=== PATIENT | male | born 1960 | race Caucasian/White ===

== ENCOUNTER 2017-08-10 09:22 | Emergency (ER) | payer BC, OTHER ==
[2017-08-10 09:41] VITALS: BP 135/83; PULSE 77; TEMP 98.6; BMI 23.3
--- NOTE | 2017-08-10 09:59 | PDOC ---
History of Present Illness - General Chief Complaint: Lightheaded Stated Complaint: UPPER BACK AND NECK PAIN Time Seen by Provider: 08/10/17 09:57 History Source: Patient Exam Limitations: No Limitations - History of Present Illness Initial Comments: 08/10/17 10:07 came to emergency department for evaluation of left neck and shoulder pain. States has had intermittent episodes of same type of pain over the past few weeks that spontaneously resolved. Dates pain is primarily to his left neck, upper back, with sometimes radiation around his scalp, sometimes radiation down left shoulder. Denies associated palpitations chest pain or shortness of breath. Denies fever, earache or sore throat pain polyp, no one at home is ill with URI symptoms nor is he. Denies any history of cardiac disease and does not take any medication for any reason. 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 Denies heavy lifting or strenuous activity however has been working on house projects this past month. 08/10/17 13:02 Occurred: reports: this morning Severity: reports: mild, moderate Pain Location: reports: upper extremity (left shoulder) Method of Injury: Yes: unknown Past History - Travel Traveled outside of the country in the last 30 days: No Close contact w/someone who was outside of country & ill: No - Past Medical History Allergies/Adverse Reactions: Allergies Allergy/AdvReac Type Severity Reaction Status Date / Time No Known Allergies Allergy Verified 08/10/17 09:32 Home Medications: Ambulatory Orders Cyclobenzaprine HCl 10 mg PO Q8H PRN #14 tablet 08/10/17 Ibuprofen 600 mg PO Q6H PRN #30 tablet 08/10/17 COPD: No - Suicide/Smoking/Psychosocial Hx Smoking History: Never smoked Have you smoked in the past 12 months: No Information on smoking cessation initiated: No Hx Alcohol Use: No Drug/Substance Use Hx: No Substance Use Type: None Trauma Specific PMHX - Complaint Specific PMHX Back Injury: No Neck Injury: No Review of Systems - Review of Systems Able to Perform ROS?: Yes Is the patient limited German proficient: Yes Constitutional: Yes: See HPI. No: Symptoms Reported, Loss of Appetite, Malaise HEENTM: Yes: See HPI. No: Symptoms Reported, Nose Congestion, Throat Pain Respiratory: Yes: See HPI. No: Symptoms reported, Cough, Wheezing Cardiac (ROS): Yes: See HPI. No: Symptoms Reported, Lightheadedness, Palpitations, Syncope, Chest Tightness ABD/GI: Yes: See HPI. No: Symptoms Reported, Constipated, Diarrhea, Nausea, Vomiting : No: Symptoms Reported Integumentary: No: Symptoms Reported Neurological: Yes: Symptoms reported, Headache (wraparound type headache primarily on the left side and seems to be associated with the pain to his shoulder and neck muscles). No: Numbness, Paresthesia All Other Systems: Reviewed and Negative *Physical Exam - Vital Signs Last Vital Signs Temp Pulse Resp BP Pulse Ox 98.6 F 77 18 135/83 100 08/10/17 09:35 08/10/17 09:35 08/10/17 09:35 08/10/17 09:35 08/10/17 09:35 - Physical Exam General Appearance: Yes: Nourished, Appropriately Dressed. No: Apparent Distress HEENT: positive: [place], Normal ENT Inspection, TMs Normal, Pharynx Normal Neck: positive: Tender (mild tenderness reproduced with palpation of the sternocleidomastoid muscles primarily the anterior belly of the left side. However no reproduced tenderness with point pressure at occiput, or insertion sites mid trapezius. However has some tenderness and tension at the upper lateral aspect of left trapezius. Pain is reproduced with abduction against resistance at same muscle groups of his upper back.), Supple. negative: Lymphadenopathy (R), Lymphadenopathy (L) Respiratory/Chest: positive: Lungs Clear, Normal Breath Sounds Cardiovascular: positive: Regular Rhythm, Regular Rate Gastrointestinal/Abdominal: positive: Normal Bowel Sounds, Soft. negative: Tender Musculoskeletal: positive: Normal Inspection. negative: CVA Tenderness Extremity: positive: Normal Capillary Refill Integumentary: positive: Normal Color, Dry, Warm, Pale Neurologic: positive: brick offbearer II-XII NML intact, Fully Oriented, Alert, Normal Mood/ Affect, Normal Response, Motor Strength 5/5 Heart Score/ECG Review - ECG Intrepretation Rhythm: Regular Rhythm - ECG Impressions Normal ECG: Yes Ischemic Changes: No ED Treatment Course - LABORATORY CBC & Chemistry Diagram: 08/10/17 10:10 08/10/17 10:13 Progress Note - Progress Note Progress Note: Left shoulder and neck pain. EKG is normal , and symptomatology clinically suspicious for musculoskeletal disorders however will obtain basic labs including a cardiac profile to rule out any potential pathology area and provide Toradol for anti-inflammatory and pain relief Medical Decision Making - Medical Decision Making 08/10/17 12:05 states feels much improved, Toradol relieved much of his neck tenderness. Laboratory work within normal limits and cardiac enzymes negative for any cardiac involvement. With normal EKG and normal labs, will discharge with treatment for cervical muscle strain with NSAIDs and cyclobenzaprine. We'll have follow-up with PMD 08/10/17 13:03 *DC/Admit/Observation/Transfer Diagnosis at time of Disposition: Sprain of cervical neck Qualifiers: Encounter type: initial encounter Qualified Code(s): S13.9XXA - Sprain of joints and ligaments of unspecified parts of neck, initial encounter - Discharge Dispostion Disposition: HOME Condition at time of disposition: Stable Admit: No - Prescriptions Prescriptions: Cyclobenzaprine HCl 10 mg PO Q8H PRN #14 tablet PRN Reason: spasm Ibuprofen 600 mg PO Q6H PRN #30 tablet PRN Reason: Pain - Referrals Referrals: Keith Calderon MD [Primary Care Provider] - - Patient Instructions Printed Discharge Instructions: DI for Cervical Muscle Strain Additional Instructions: Rest, no heavy lifting or exercise until pain is resolved Hot soaks to neck and low back as often as possible/hot showers or Jacuzzis No massage or therapy until spasm is gone Continue ibuprofen 2-200 mg tablets every 6 hours for the next 3 days then as needed for pain and swelling Cyclobenzaprine 1-10mg every 8 hours as needed for spasm If not significant improvement within 24 hours with medication and rest regime, followup with private physician for change in medications and /or therapy. - Post Discharge Activity Forms/Work/School Notes: Back to Work
[2017-08-10] MEDS ORDERED: KETOROLAC TROMETHAMINE 30 MG/1 ML VIAL IVPUSH ONE (10:07)
[2017-08-10] MEDS ORDERED: KETOROLAC TROMETHAMINE 30 MG/1 ML VIAL ONE (10:18)
[2017-08-10 10:49] LABS: BASO % 0.1 % (0-2.0); EOS % 2.1 % (0-4.5); HEMATOCRIT 46.2 % (35.4-49); LYMPH % 37.5 % (8-40); MCH 29.5 pg (25.7-33.7); MCHC 32.5 g/dl (32.0-35.9); MEAN CELL VOLUME 90.6 fl (80-96); MEAN PLT VOLUME 8.5 fl (7.5-11.1); MONO % 10.5 % (3.8-10.2); NEUT % 49.8 % (42.8-82.8); PLATELET COUNT 189 K/MM3 (134-434); RBC 5.09 M/mm3 (4.00-5.60); RDW 13.4 % (11.9-15.9); WHITE BLOOD COUNT 5.5 K/mm3 (4.0-10.0)
[2017-08-10 10:58] LABS: ANION GAP 8 (8-16); BILIRUBIN,TOTAL 0.4 mg/dL (0.2-1.0); BLOOD UREA NITROGEN 18 mg/dL (7-18); CALCIUM 8.9 mg/dL (8.5-10.1); CHLORIDE 102 mmol/L (98-107); CO2 28 mmol/L (21-32); CREATININE 0.9 mg/dL (0.7-1.3); GLUCOSE,RANDOM 75 mg/dL (74-106); SGPT/ALT 54 U/L (12-78); SODIUM 138 mmol/L (136-145); TOT PROT 7.5 g/dl (6.4-8.2)
[2017-08-10 11:01] LABS: ALK PHOS 48 U/L (45-117)
[2017-08-10 11:04] LABS: POTASSIUM 4.3 mmol/L (3.5-5.1); SGOT/AST 26 U/L (15-37)
--- NOTE | 2017-08-10 15:20 | EKG ---
Test Reason : Blood Pressure : / mmHG Vent. Rate : 072 BPM Atrial Rate : 072 BPM P-R Int : 156 ms QRS Dur : 072 ms QT Int : 366 ms P-R-T Axes : 048 030 032 degrees QTc Int : 400 ms NORMAL SINUS RHYTHM NORMAL ECG NO PREVIOUS ECGS AVAILABLE Confirmed by Gerardo Kinney ([id number]) on 08/10/2017 3:20:22 PM Referred By: Confirmed By:Gerardo Kinney
== END 2017-08-10 12:26 | disposition home or self-care (01) ==
LOC: JER 09:22
PROC: 3E0333Z Introduction of Anti-inflammatory into Peripheral Vein, Percutaneous Approach (ICD-10-PCS; principal; 2017-08-10)
DX: S13.4XXA Sprain of ligaments of cervical spine, initial encounter (principal); X50.0XXA Overexertion from strenuous movement or load, initial encounter; Y93.E9 Activity, other interior property and clothing maintenance; Y92.89 Other specified places as the place of occurrence of the external cause; Y99.8 Other external cause status
CPT/HCPCS: 36415; 80053; 82550; 84484; 85025; 93005; 93010; 99284-25

== ENCOUNTER 2020-10-13 05:29 | Day surgery (SDC) | payer BC, OTHER ==
[2020-10-12 11:27] VITALS: BMI 24.7
[2020-10-13] MEDS ORDERED: MIDAZOLAM HCL 2 MG/2 ML SINGLE DOSE VIAL ONE (10:13)
[2020-10-13] MEDS ORDERED: PROPOFOL 20 ML ONE (10:13)
[2020-10-13] MEDS ORDERED: ceFAZolin SODIUM 1 GM VIAL ONE (10:38)
[2020-10-13] MEDS ORDERED: ceFAZolin 2 GRAM PREMIX BAG IVPB ONE (10:40)
[2020-10-13] MEDS ORDERED: DEXAMETHASONE SOD PHOSPHATE 4 MG/1 ML VIAL ONE (10:46)
[2020-10-13] MEDS ORDERED: oxyCODONE HCL 5 MG TABLET PO PRN (11:14)
[2020-10-13] MEDS ORDERED: DEXTROSE 5%-0.45% SALINE 1,000 ML IV SCH (11:15)
[2020-10-13] MEDS ORDERED: LACTATED RINGERS SOLUTION 1,000 ML IV SCH (11:15)
[2020-10-13] MEDS ORDERED: ONDANSETRON 4 MG/2 ML VIAL IVPUSH PRN (11:15)
[2020-10-14 15:17] VITALS: BP 118/70; PULSE 66; TEMP 98.2
== END 2020-10-13 13:30 | disposition home or self-care (01) ==
LOC: JASU-SURG 05:29
PROVIDERS: ATTEND Urology
PROC: 0VT08ZZ Resection of Prostate, Via Natural or Artificial Opening Endoscopic (ICD-10-PCS; principal; 2020-10-13 10:00)
DX: N40.1 Benign prostatic hyperplasia with lower urinary tract symptoms (principal); R39.12 Poor urinary stream
CPT/HCPCS: 94760

== ENCOUNTER 2020-11-14 23:30 | Inpatient (IN) | payer BC, OTHER ==
[2020-11-15 00:01] VITALS: BMI 24.7
[2020-11-15] MEDS ORDERED: LIDOCAINE HCL 2% JELLY 10 ML CARTRIDGE ONE (00:15)
[2020-11-15] MEDS ORDERED: LIDOCAINE HCL 2% JELLY 10 ML CARTRIDGE UR ONE (00:15)
[2020-11-15] MEDS ORDERED: SODIUM CHLORIDE 1,000 ML IV STA (00:16)
[2020-11-15 00:39] LABS: BASO % 0.2 % (0-2.0); EOS % 0.6 % (0-4.5); HEMATOCRIT 38.8 % (35.4-49); HEMOGLOBIN 13.2 GM/dL (11.7-16.9); LYMPH % 16.8 % (8-40); MCH 30.3 pg (25.7-33.7); MCHC 33.9 g/dl (32.0-35.9); MEAN CELL VOLUME 89.3 fl (80-96); MEAN PLT VOLUME 8.7 fl (7.5-11.1); MONO % 5.9 % (3.8-10.2); NEUT % 76.5 % (42.8-82.8); PLATELET COUNT 172 K/MM3 (134-434); RBC 4.35 M/mm3 (4.00-5.60); WHITE BLOOD COUNT 9.9 K/mm3 (4.0-10.0)
[2020-11-15 01:02] LABS: ALBUMIN 3.7 g/dl (3.4-5.0); CALCIUM 9.2 mg/dL (8.5-10.1)
[2020-11-15 01:05] LABS: CREATININE 1.1 mg/dL (0.55-1.3)
[2020-11-15 01:07] LABS: BILIRUBIN,TOTAL 0.4 mg/dL (0.2-1)
[2020-11-15 01:10] LABS: LACTIC ACID 2.5 mmol/L (0.4-2.0)
[2020-11-15 01:32] LABS: URINE APPEARANCE TURBID; URINE BILIRUBIN NEGATIVE (NEGATIVE); URINE COLOR DK YELLOW; URINE GLUCOSE (UA) NEGATIVE (NEGATIVE); URINE KETONE NEGATIVE (NEGATIVE); URINE LEUK ESTERASE NEGATIVE (NEGATIVE); URINE NITRITE NEGATIVE (NEGATIVE); URINE PROTEIN 4+ (NEGATIVE); URINE UROBILINOGEN 0.2 mg/dL (0.2-1.0)
[2020-11-15] MEDS ORDERED: ACETAMINOPHEN 500 MG TABLET (FP) PO ONE (03:01)
[2020-11-15] MEDS ORDERED: ACETAMINOPHEN 325 MG TABLET (FP) ONE (03:03)
[2020-11-15] MEDS ORDERED: MORPHINE SULFATE 2 MG/ML VIAL IVPUSH ONE (04:27)
[2020-11-15] MEDS: SODIUM CHLORIDE 1,000 ML IV SCH ×2 (05:41→11:33)
[2020-11-15] MEDS ORDERED: MORPHINE SULFATE 2 MG/ML VIAL ONE (05:44)
[2020-11-15] MEDS ORDERED: TAMSULOSIN HCL 0.4 MG CAP PO ONE (05:48)
[2020-11-15] MEDS ORDERED: TAMSULOSIN HCL 0.4 MG CAP ONE (06:54)
[2020-11-15 07:13] LABS: BASO % 0.1 % (0-2.0); EOS % 0.1 % (0-4.5); HEMATOCRIT 36.2 % (35.4-49); HEMOGLOBIN 12.9 GM/dL (11.7-16.9); LYMPH % 13.1 % (8-40); MCH 31.6 pg (25.7-33.7); MCHC 35.5 g/dl (32.0-35.9); MEAN PLT VOLUME 8.7 fl (7.5-11.1); MONO % 5.9 % (3.8-10.2); NEUT % 80.8 % (42.8-82.8); PLATELET COUNT 149 K/MM3 (134-434); RBC 4.07 M/mm3 (4.00-5.60); RDW 13.3 % (11.9-15.9); WHITE BLOOD COUNT 10.2 K/mm3 (4.0-10.0)
[2020-11-15 07:44] LABS: BLOOD UREA NITROGEN 13.1 mg/dL (7-18); CALCIUM 8.5 mg/dL (8.5-10.1)
[2020-11-15 07:47] LABS: CREATININE 0.8 mg/dL (0.55-1.3)
[2020-11-15] MEDS: FINASTERIDE 5 MG TABLET (FP) PO SCH (11:34)
[2020-11-15 14:45] LABS: URINE RBC >200 /uL (0-23.9); URINE WBC 0-5 /uL (0-25.8)
[2020-11-15] MEDS: ACETAMINOPHEN 325 MG TABLET (FP) PO PRN (22:48)
[2020-11-16] MEDS: SODIUM CHLORIDE 1,000 ML IV SCH ×3 (01:10→14:35)
[2020-11-16] MEDS: TAMSULOSIN HCL 0.4 MG CAP PO SCH (09:06)
[2020-11-16] MEDS: FINASTERIDE 5 MG TABLET (FP) PO SCH (09:07)
[2020-11-17] MEDS: SODIUM CHLORIDE 1,000 ML IV SCH ×2 (02:53→17:21)
[2020-11-17] MEDS: ACETAMINOPHEN 325 MG TABLET (FP) PO PRN (03:11)
[2020-11-17] MEDS: TAMSULOSIN HCL 0.4 MG CAP PO SCH (09:12)
[2020-11-17] MEDS: FINASTERIDE 5 MG TABLET (FP) PO SCH (09:12)
[2020-11-17 14:39] LABS: HEMATOCRIT 35.9 % (35.4-49); MCH 30.1 pg (25.7-33.7); MCHC 33.3 g/dl (32.0-35.9); MEAN CELL VOLUME 90.4 fl (80-96); MEAN PLT VOLUME 8.7 fl (7.5-11.1); PLATELET COUNT 171 K/MM3 (134-434); RBC 3.97 M/mm3 (4.00-5.60); RDW 13.5 % (11.9-15.9); WHITE BLOOD COUNT 8.5 K/mm3 (4.0-10.0)
[2020-11-17 14:51] LABS: CALCIUM 8.5 mg/dL (8.5-10.1)
[2020-11-17 14:52] LABS: BLOOD UREA NITROGEN 11.4 mg/dL (7-18)
[2020-11-17 14:55] LABS: CREATININE 0.9 mg/dL (0.55-1.3)
[2020-11-18] MEDS: SODIUM CHLORIDE 1,000 ML IV SCH (05:40)
[2020-11-18] MEDS: TAMSULOSIN HCL 0.4 MG CAP PO SCH (09:51)
[2020-11-18] MEDS: FINASTERIDE 5 MG TABLET (FP) PO SCH (09:51)
[2020-11-18 13:07] VITALS: BP 123/73; PULSE 98; TEMP 97.9
== END 2020-11-18 17:47 | disposition home health service (06) | DRG 726 ==
LOC: JER 23:30 → JERBED 11-15 03:55 → J7W 11-15 09:58
PROVIDERS: ADMIT Internal Medicine; ATTEND Family Medicine
DX: N40.1 Benign prostatic hyperplasia with lower urinary tract symptoms (principal); R33.9 Retention of urine, unspecified; R31.0 Gross hematuria; E78.5 Hyperlipidemia, unspecified
CPT/HCPCS: 36415; 76775-TC; 76856-TC; 80048; 80053; 81003; 83605; 85025; 85027; 87086; 93005; 93010; 99285-25; C9803; U0003; U0005